=== PATIENT | female | born 1955 | race Caucasian/White ===

== ENCOUNTER 2021-07-25 07:58 | Outpatient (CLI) | payer MEDICARE | END 2021-07-25 07:59 | disposition home or self-care (01) | LOC: BICMAMMO 07:58 | PROVIDERS: ATTEND Family Medicine | DX: Z13.820 Encounter for screening for osteoporosis (principal); M81.0 Age-related osteoporosis without current pathological fracture | CPT/HCPCS: 77063; 77067; 77080 ==

== ENCOUNTER 2022-06-01 07:47 | Outpatient (CLI) | payer MEDICARE | END 2022-06-01 07:48 | disposition home or self-care (01) | LOC: BICULT 07:47 | PROVIDERS: ATTEND Family Medicine | DX: R19.7 Diarrhea, unspecified (principal); R63.4 Abnormal weight loss; R07.89 Other chest pain; Z85.72 Personal history of non-Hodgkin lymphomas; R93.89 Abnormal findings on diagnostic imaging of other specified body structures; N13.30 Unspecified hydronephrosis; Z90.49 Acquired absence of other specified parts of digestive tract | CPT/HCPCS: 76700; 76856; 93976 ==

== ENCOUNTER 2022-06-29 17:46 | Outpatient (CLI) | payer MEDICARE ==
[2022-06-29 18:40] LABS: #Basophils 0.1 10x3/uL (0.0-0.2); #Eosinphils 0.1 10x3/uL (0.0-0.5); #Monocytes 0.3 10x3/uL (0.0-1.1); #Neutrophils 1.9 10x3/uL (1.5-8.4); %Basophils 1.6 % (0.0-2.0); %Eosinophils 3.5 % (0.0-6.0); %Lymphocytes 37.4 % (18.0-47.0); %Monocytes 7.5 % (0.0-10.0); %Neutrophils 49.7 % (40.0-75.0); Hemoglobin 11.1 g/dL (12.0-15.5); Mean Corpuscular HGB CONC 34.9 g/dL (32.0-36.0); Mean Corpuscular Hemoglobin 32.6 pg (27.0-33.0); Mean Corpuscular Volume 93.5 fl (81.6-98.3); Mean Platelet Volume 8.5 fl (7.4-10.4); Platelet Count 170 10x3/uL (150-450); RBC Distribution Width 12.8 % (11.5-14.5); White Blood Cell (WBC) Count 3.7 10x3/uL (3.5-10.5)
[2022-06-29 18:46] LABS: Bilirubin Neg (Negative); Blood, Urine Negative (Negative); Clarity Clear (Clear); Glucose, Urine (Dipstick) Normal (Negative); Ketone, Urine Negative (Negative); Leukocyte 100 (Negative); Nitrite Negative (Negative); Protein, Urine (Dipstick) Negative (Neg-Trace); Urobilinogen Normal mg/dL (Less than 2); pH, Urine 6.5 (5.0-9.0)
== END 2022-06-29 17:47 | disposition home or self-care (01) ==
LOC: LABBT 17:46
PROVIDERS: ATTEND Orthopaedic Surgery Hand Surgery
DX: Z01.818 Encounter for other preprocedural examination (principal); M65.4 Radial styloid tenosynovitis [de Quervain]; Z20.822 Contact with and (suspected) exposure to COVID-19
CPT/HCPCS: 81003; 85025; 87811; 93005; 93010

== ENCOUNTER 2022-10-27 06:34 | Day surgery (SDC) | payer MEDICARE ==
[2022-10-26 09:40] VITALS: BMI 20.9
[2022-10-27] MEDS ORDERED: Sodium Chloride 0.9% 100 ML ONE (07:38)
[2022-10-27] MEDS ORDERED: CEFAZOLIN 2 GM VIAL ONE (07:38)
[2022-10-27] MEDS ORDERED: Lidocaine 1% MPF 2 ML VIAL ONE (07:38)
[2022-10-27] MEDS ORDERED: Bupivacaine PF 0.5% 30 ML VIAL ONE (07:44)
[2022-10-27] MEDS ORDERED: Bacitracin Zinc Ointment 30 gm TUBE ONE (07:44)
[2022-10-27] MEDS ORDERED: HYDROmorphone 2 MG/ML VIAL ONE (08:16)
[2022-10-27] MEDS ORDERED: PROPOFOL 200 MG/20 ML VIAL ONE (08:35)
[2022-10-27] MEDS ORDERED: Lidocaine 1% PF 5 ML VIAL ONE (08:35)
[2022-10-27] MEDS ORDERED: Dexamethasone 20 MG/5 ML VIAL ONE (08:35)
[2022-10-27] MEDS ORDERED: Ondansetron PF 4 MG/2 ML Vial ONE (08:35)
[2022-10-27] MEDS ORDERED: Ketorolac Tromethamine 30 MG/ML VIAL ONE (08:35)
== END 2022-10-27 10:49 | disposition home or self-care (01) ==
LOC: SDC 06:34
PROVIDERS: ATTEND Orthopaedic Surgery Hand Surgery
PROC: 0LB60ZZ Excision of Left Lower Arm and Wrist Tendon, Open Approach (ICD-10-PCS; principal; 2022-10-27)
DX: M65.4 Radial styloid tenosynovitis [de Quervain] (principal); M65.342 Trigger finger, left ring finger; M25.839 Other specified joint disorders, unspecified wrist; M77.11 Lateral epicondylitis, right elbow; M25.832 Other specified joint disorders, left wrist; E07.9 Disorder of thyroid, unspecified; M81.0 Age-related osteoporosis without current pathological fracture; Z85.72 Personal history of non-Hodgkin lymphomas; Z79.620 Long term (current) use of immunosuppressive biologic; Z79.890 Hormone replacement therapy; Z79.899 Other long term (current) drug therapy; Z88.5 Allergy status to narcotic agent; Z88.8 Allergy status to other drugs, medicaments and biological substances
CPT/HCPCS: J1100; J1170; J1885; J2405; J2704; J3490; S0020

== ENCOUNTER 2023-01-19 10:23 | Outpatient (CLI) | payer MEDICARE | END 2023-01-19 10:24 | disposition home or self-care (01) | LOC: BICMAMMO 10:23 | PROVIDERS: ATTEND Family Medicine | DX: Z12.31 Encounter for screening mammogram for malignant neoplasm of breast (principal); Z80.3 Family history of malignant neoplasm of breast; Z85.72 Personal history of non-Hodgkin lymphomas | CPT/HCPCS: 77063; 77067 ==

== ENCOUNTER 2023-11-05 12:57 | Outpatient (CLI) | payer MEDICARE | END 2023-11-05 12:58 | disposition home or self-care (01) | LOC: BICMAMMO 12:57 | PROVIDERS: ATTEND Nurse Practitioner Adult Health | DX: M81.0 Age-related osteoporosis without current pathological fracture (principal); M85.89 Other specified disorders of bone density and structure, multiple sites | CPT/HCPCS: 77080 ==

== ENCOUNTER 2024-01-28 15:50 | Outpatient (CLI) | payer MEDICARE | END 2024-01-28 15:51 | disposition home or self-care (01) | LOC: BICMAMMO 15:50 | PROVIDERS: ATTEND Family Medicine | DX: Z12.31 Encounter for screening mammogram for malignant neoplasm of breast (principal); Z80.3 Family history of malignant neoplasm of breast; Z85.72 Personal history of non-Hodgkin lymphomas | CPT/HCPCS: 77063; 77067 ==

== ENCOUNTER 2024-11-13 11:17 | Outpatient (CLI) | payer MEDICARE | END 2024-11-13 11:18 | disposition home or self-care (01) | LOC: BICMRI 11:17 | PROVIDERS: ATTEND Orthopaedic Surgery Hand Surgery | DX: M75.101 Unspecified rotator cuff tear or rupture of right shoulder, not specified as traumatic (principal); M19.011 Primary osteoarthritis, right shoulder; M77.8 Other enthesopathies, not elsewhere classified; M89.9 Disorder of bone, unspecified ==

== ENCOUNTER 2024-12-05 10:18 | Outpatient (CLI) | payer MEDICARE | END 2024-12-05 10:19 | disposition home or self-care (01) | LOC: BICMRI 10:18 | PROVIDERS: ATTEND Orthopaedic Surgery Hand Surgery | DX: S63.591D Other specified sprain of right wrist, subsequent encounter (principal); S63.592A Other specified sprain of left wrist, initial encounter ==

== ENCOUNTER 2025-07-10 08:05 | Observation (INO) | payer MEDICARE ==
[2025-06-29 13:35] VITALS: BMI 21.4
[2025-07-10] MEDS ORDERED: Ropivacaine 0.5% HCl/PF (150 MG/30 ML VIAL) ONE (10:59)
[2025-07-10] MEDS ORDERED: PROPOFOL 200 MG/20 ML VIAL ONE (11:24)
[2025-07-10] MEDS ORDERED: Lidocaine 1% PF 5 ML VIAL ONE (11:24)
[2025-07-10] MEDS ORDERED: Thrombin 5000 UNITS/5 ML VIAL ONE (12:08)
[2025-07-10] MEDS ORDERED: HYDROcodone/Acetaminophen 5/325 mg Tablet ONE (14:38)
[2025-07-10] MEDS ORDERED: Ondansetron PF 4 MG/2 ML Vial ONE (15:07)
[2025-07-10] MEDS ORDERED: Albuterol 200 PUFF (6.7GM INHALER) INH PRN (16:13)
[2025-07-10] MEDS: Vancomycin 1 GM in Premix 1 BAG IVPB SCH (21:52)
[2025-07-10] MEDS: HYDROcodone/Acetaminophen 7.5/325 mg Tablet PO PRN (23:59)
[2025-07-11] MEDS: Vancomycin 1 GM in Sodium Chloride 0.9% 250 ML 250 ML IVPB SCH (09:22)
[2025-07-12 08:03] VITALS: BP 142/75; TEMP 97.9
== END 2025-07-12 10:19 | disposition home or self-care (01) ==
LOC: SDC 08:05 → SURG A 16:07
PROVIDERS: ADMIT Orthopaedic Surgery Hand Surgery; ATTEND Orthopaedic Surgery Hand Surgery
PROC: 0PSL04Z Reposition Left Ulna with Internal Fixation Device, Open Approach (ICD-10-PCS; principal; 2025-07-10)
DX: M96.89 Other intraoperative and postprocedural complications and disorders of the musculoskeletal system (principal); M65.4 Radial styloid tenosynovitis [de Quervain]; M65.342 Trigger finger, left ring finger; M25.839 Other specified joint disorders, unspecified wrist; M77.11 Lateral epicondylitis, right elbow; M25.832 Other specified joint disorders, left wrist; M85.40 Solitary bone cyst, unspecified site; M75.101 Unspecified rotator cuff tear or rupture of right shoulder, not specified as traumatic; M65.931 Unspecified synovitis and tenosynovitis, right forearm; S63.591A Other specified sprain of right wrist, initial encounter; S63.592A Other specified sprain of left wrist, initial encounter; Z98.42 Cataract extraction status, left eye; Z98.41 Cataract extraction status, right eye; Z90.49 Acquired absence of other specified parts of digestive tract; Z88.5 Allergy status to narcotic agent; Z88.8 Allergy status to other drugs, medicaments and biological substances; X58.XXXA Exposure to other specified factors, initial encounter
CPT/HCPCS: 25405; 73090; 97116 ×2; A6223; C1713 ×5; J0169; J2250; J2270; J2405; J2704; J2795; J3010; J3372; J3373; J7050; Q0162 ×2

== ENCOUNTER 2025-07-31 10:44 | Inpatient (IN) | payer MEDICARE ==
[2025-07-31] MEDS ORDERED: Iopamidol-370 76% 500 ML MDV (1 ML CHARGE) ONE (11:03)
[2025-07-31] MEDS ORDERED: Ondansetron PF 4 MG/2 ML Vial ONE (11:16)
[2025-07-31 12:09] LABS: #Basophils 0.03 10x3/uL (0.0-0.2); #Eosinophils 0.04 10x3/uL (0.0-0.7); #Monocytes 0.14 10x3/uL (0.11-0.59); #Neutrophils 2.98 10x3/uL (1.40-6.50); %Basophils 0.8 % (0.0-1.0); %Eosinophils 1.1 % (0.0-10.0); %Lymphocytes 10.1 % (21.0-51.0); %Monocytes 3.9 % (0.0-10.0); %Neutrophils 84.1 % (42.0-75.0); Hematocrit 35.0 % (36.0-47.0); Hemoglobin 12.0 g/dL (12.0-16.0); Mean Corpuscular Hemoglobin 32.7 pg (27.0-31.0); Mean Corpuscular Volume 95.4 fL (78.0-98.0); Platelet Count 161 10x3/uL (130-400); Red Blood Cell (RBC) Count 3.67 mill/uL (4.20-5.40); White Blood Cell (WBC) Count 3.55 10x3/uL (4.8-10.8)
[2025-07-31 12:24] LABS: INR-International Normal Ratio 1.1; Prothrombin Time 14.3 sec (12.0-14.7)
[2025-07-31 12:25] LABS: PTT 47.9 sec (22.9-36.1)
[2025-07-31 12:26] LABS: BHCG - Serum Negative (NEGATIVE); Pregs Control Background? CLEAR/WHITE (CLR/WHITE); Pregs Control Bar Appear? YES (CONTROL BAR)
[2025-07-31 12:42] LABS: ALT (SGPT) 18 U/L (Less than 34); AST (SGOT) 29 U/L (11-34); Albumin 3.9 g/dL (3.1-4.5); Alkaline Phosphatase 85 U/L (40-110); Anion Gap 13 mmol/L (10-20); BUN (Urea Nitrogen) 16 mg/dL (9.8-20.1); Bilirubin, Total 1.5 mg/dL (0.3-1.2); Calc. Creatinine Clearance 0 mL/min (70-130); Calcium 8.7 mg/dL (7.8-10.44); Carbon Dioxide 23 mmol/L (23-31); Chloride 101 mmol/L (98-107); Globulin 2.7 g/dL (2.4-3.5); Glucose 102 mg/dL (83-110); Potassium 3.9 mmol/L (3.5-5.1); Sodium 133 mmol/L (136-145)
[2025-07-31] MEDS ORDERED: Communication Order-Pharmacy FS SCH (18:45)
[2025-07-31] MEDS ORDERED: HYDROcodone/Acetaminophen 5/325 mg Tablet ONE (19:02)
[2025-07-31 22:01] VITALS: BMI 23.8
[2025-07-31] MEDS: Aspirin 81 mg Enteric Coated Tablet PO SCH (22:12)
[2025-07-31] MEDS: HYDROcodone/Acetaminophen 5/325 mg Tablet PO PRN (22:58)
[2025-08-01] MEDS: Ondansetron PF 4 MG/2 ML Vial IVP PRN (05:34)
[2025-08-01] MEDS: Enoxaparin 30 MG (0.3 mL) SYRINGE SC SCH (08:29)
[2025-08-01] MEDS ORDERED: Lidocaine 1% w/Epinephrine 1:100K 20 ML VIAL ONE (11:52)
[2025-08-01] MEDS ORDERED: Sodium Bicarbonate 2.5 MEQ/5 ML SDV ONE (11:52)
[2025-08-02] MEDS ORDERED: Enoxaparin 40 MG (0.4 mL) SYRINGE SC SCH (09:00)
[2025-08-02] MEDS ORDERED: PROPOFOL 20 ML ONE (10:31)
[2025-08-02] MEDS ORDERED: CEFAZOLIN 2 GM VIAL ONE (10:31)
[2025-08-02] MEDS ORDERED: Lidocaine 1% PF 5 ML VIAL ONE (10:31)
[2025-08-02] MEDS ORDERED: Ketamine In 0.9 % NaCl 50 MG/5 ML SYRINGE ONE (10:32)
[2025-08-02] MEDS ORDERED: Ondansetron PF 4 MG/2 ML Vial ONE (10:55)
[2025-08-02] MEDS ORDERED: PHENYLEPHRINE-NS 100 MCG/ML 10 ML SYRINGE ONE (11:01)
[2025-08-02] MEDS ORDERED: Rocuronium Bromide 10 MG/ML (10ML VIAL) ONE ×2 (11:20→11:53)
[2025-08-02] MEDS ORDERED: SUGAMMADEX SODIUM 200 MG/2 ML VIAL ONE (11:53)
[2025-08-02] MEDS: Acetaminophen/Codeine 30-300mg Tablet PO PRN (13:23)
[2025-08-02] MEDS: Milk Of Magnesia 30 ML UDCUP PO PRN (21:12)
[2025-08-03 11:28] LABS: #Basophils 0.03 10x3/uL (0.0-0.2); #Eosinophils 0.21 10x3/uL (0.0-0.7); #Monocytes 0.46 10x3/uL (0.11-0.59); #Neutrophils 3.13 10x3/uL (1.40-6.50); %Basophils 0.6 % (0.0-1.0); %Eosinophils 4.4 % (0.0-10.0); %Lymphocytes 19.3 % (21.0-51.0); %Monocytes 9.6 % (0.0-10.0); %Neutrophils 65.7 % (42.0-75.0); Hematocrit 32.4 % (36.0-47.0); Hemoglobin 10.8 g/dL (12.0-16.0); Mean Corpuscular Hemoglobin 32.2 pg (27.0-31.0); Mean Corpuscular Volume 96.7 fL (78.0-98.0); Platelet Count 166 10x3/uL (130-400); Red Blood Cell (RBC) Count 3.35 mill/uL (4.20-5.40); White Blood Cell (WBC) Count 4.77 10x3/uL (4.8-10.8)
[2025-08-03] MEDS ORDERED: Aluminum & Magnesium Hydroxide 60 ML, Lidocaine 2% Viscous Solution 30 ML, diphenhydrAM... SSP PRN (12:43)
[2025-08-04] MEDS: Bisacodyl 10 MG SUPP PR PRN (08:29)
[2025-08-04 09:08] VITALS: BP 128/79; TEMP 98.3
== END 2025-08-04 12:25 | disposition home or self-care (01) | DRG 516 ==
LOC: ERS 10:44 → T4-B 19:50
PROVIDERS: ADMIT Orthopaedic Surgery Hand Surgery; ATTEND Orthopaedic Surgery Hand Surgery
PROC: 3E03329 Introduction of Other Anti-infective into Peripheral Vein, Percutaneous Approach (ICD-10-PCS; 2025-07-31)
PROC: 3E033XZ Introduction of Vasopressor into Peripheral Vein, Percutaneous Approach (ICD-10-PCS; 2025-07-31)
PROC: 0Q933ZZ Drainage of Left Pelvic Bone, Percutaneous Approach (ICD-10-PCS; 2025-08-01)
PROC: 0QS304Z Reposition Left Pelvic Bone with Internal Fixation Device, Open Approach (ICD-10-PCS; principal; 2025-08-02)
DX: S32.392A Other fracture of left ilium, initial encounter for closed fracture (principal); C81.9A Hodgkin lymphoma, unspecified, in remission; E03.9 Hypothyroidism, unspecified; Z88.8 Allergy status to other drugs, medicaments and biological substances; Z88.5 Allergy status to narcotic agent; Z98.890 Other specified postprocedural states; Z90.49 Acquired absence of other specified parts of digestive tract; Z79.890 Hormone replacement therapy; Z98.41 Cataract extraction status, right eye; Z98.42 Cataract extraction status, left eye; Z79.899 Other long term (current) drug therapy; Z79.52 Long term (current) use of systemic steroids; M85.80 Other specified disorders of bone density and structure, unspecified site
CPT/HCPCS: 36415; 72190; 74177; 76942; 80053; 83605; 84703; 85025; 85610; 85730; 86850; 86870; 86900; 86901; 86922; 87040; 87070; 87205; 93005; 94760; C1713; J0169; J0665; J1100; J1650; J2270; J2550; J2704; J3490; Q9967